=== PATIENT | male | born 1985 | race Native Hawaiian/Other Pacific Islander ===

== ENCOUNTER 2019-10-26 11:20 | Emergency (ER) | payer OTHER ==
[~2019-10-26] VITALS: Ht 177.8 cm; Wt 105.7 kg
[2019-10-26] MEDS ORDERED: BUPR8SUB2 PO (12:19)
[2019-10-26 12:42] LABS: PLATELET COUNT 294 K/uL (142-355)
[2019-10-26 12:58] LABS: POTASSIUM 4.2 mmol/L (3.6-5.2)
[2019-10-26 14:00] VITALS: BP 142/80
== END 2019-10-26 14:02 | disposition home or self-care (01) ==
LOC: ED 11:20
PROVIDERS: Emergency Medicine
DX: L03.113 Cellulitis of right upper limb (principal)
CPT/HCPCS: 36415; 80053; 83605; 85027; 96372; 99283; J0696; J1885